=== PATIENT | female | born 1940 | race Caucasian/White ===

== ENCOUNTER → 2017-01-15 | Outpatient (CLI) | payer OTHER, MEDICARE | LOC: BMCIMAGING 14:44 | PROVIDERS: ATTEND Nurse Practitioner Adult Health | DX: N83.202 Unspecified ovarian cyst, left side (principal); D25.9 Leiomyoma of uterus, unspecified ==

== ENCOUNTER → 2017-02-20 | Outpatient (CLI) | payer OTHER, MEDICARE | LOC: BMCIMAGING 09:40 | PROVIDERS: ATTEND Internal Medicine | DX: J40 Bronchitis, not specified as acute or chronic (principal); J98.4 Other disorders of lung; Z90.11 Acquired absence of right breast and nipple ==

== ENCOUNTER → 2017-04-07 | Outpatient (CLI) | payer OTHER, MEDICARE | LOC: BMCIMAGING 09:08 | PROVIDERS: ATTEND Nurse Practitioner Adult Health | DX: Z09 Encounter for follow-up examination after completed treatment for conditions other than malignant neoplasm (principal); Z87.09 Personal history of other diseases of the respiratory system; Z80.3 Family history of malignant neoplasm of breast ==

== ENCOUNTER 2017-04-14 18:42 | Emergency (ER) | payer OTHER, MEDICARE ==
[2017-04-14 18:53] VITALS: RESP 18
[2017-04-14] MEDS ORDERED: methylPREDNISolone SOD SUCC 125 MG/2 ML VIAL ONE (19:02)
[2017-04-14] MEDS ORDERED: NS 1,000 ML IV ONE (19:37)
[2017-04-14] MEDS ORDERED: RANITIDINE 50 MG/2 ML VIAL IVP ONE (19:37)
[2017-04-14] MEDS ORDERED: methylPREDNISolone SOD SUCC 125 MG/2 ML VIAL IVP ONE (19:37)
--- NOTE | 2017-04-14 19:41 | EDPHY ---
H & P Stated Complaint: TONGUE SWELLING Time Seen by Provider: 04/14/17 19:29 HPI/ROS: CHIEF COMPLAINT: Tongue swelling HISTORY OF PRESENT ILLNESS: The patient is a 76-year-old female who comes to the emergency department from the Urgent Care complaining of tongue swelling. She 1st noticed it at around 6:00 p.m. when she was eating dinner. It was primarily on the right side of her tongue. It is now spread to the left side of her tongue. No swelling in her throat or lips. She does not take any Segun inhibitors or blood pressure medication. She does take statins. She has not had any medication changes other that she is currently on a fluticasone spray for recent bronchitis. No fevers. No distress. REVIEW OF SYSTEMS: Constitutional: denies: chills, fever, recent illness, recent injury EENTM: See HPI, denies: blurred vision, double vision, nose congestion Respiratory: denies: cough, shortness of breath Cardiac: denies: chest pain, irregular heart rate, lightheadedness, palpitations Gastrointestinal/Abdominal: denies: abdominal pain, diarrhea, nausea, vomiting, blood streaked stools Genitourinary: denies: dysuria, frequency, hematuria, pain Musculoskeletal: denies: joint pain, muscle pain Skin: denies: lesions, rash, jaundice, bruising Neurological: denies: headache, numbness, paresthesia, tingling, dizziness, weakness Hematologic/Lymphatic: denies: blood clots, easy bleeding, easy bruising Immunologic/allergic: denies: HIV/AIDS, transplant EXAM: GENERAL: Well-appearing, well-nourished and in no acute distress. HEAD: Atraumatic, normocephalic. EYES: Pupils equal round and reactive to light, extraocular movements intact, sclera anicteric, conjunctiva are normal. ENT: TMs normal, nares patent, bilateral tongue swelling. Not protruding from mouth. Handling secretions. No wheezing or stridor. Moist mucous membranes. NECK: Normal range of motion, supple without lymphadenopathy or JVD. LUNGS: Breath sounds clear to auscultation bilaterally and equal. No wheezes rales or rhonchi. HEART: Regular rate and rhythm without murmurs, rubs or gallops. ABDOMEN: Soft, nontender, normoactive bowel sounds. No guarding, no rebound. No masses appreciated. BACK: No CVA tenderness, no spinal tenderness, step-offs or deformities EXTREMITIES: Normal range of motion, no pitting or edema. No clubbing or cyanosis. NEUROLOGICAL: Cranial nerves II through XII grossly intact. Normal speech, normal gait. 5/5 strength, normal movement in all extremities, normal sensation PSYCH: Normal mood, normal affect. SKIN: Warm, dry, normal turgor, no visible rashes or lesions. Source: Patient Exam Limitations: No limitations - Personal History Current Tetanus/Diphtheria Vaccine: Yes Tetanus Vaccine Date: 5yrs ago - Medical/Surgical History Hx Asthma: No Hx Chronic Respiratory Disease: Yes Hx Diabetes: Yes Hx Cardiac Disease: No Hx Renal Disease: No Hx Cirrhosis: No Hx Alcoholism: No Hx HIV/AIDS: No Hx Splenectomy or Spleen Trauma: No Other PMH: BREAST CANCER/MASTECTOMY/PNA - Family History Significant Family History: No pertinent family hx - Social History Smoking Status: Never smoked Alcohol Use: Sober Drug Use: None Constitutional: Initial Vital Signs Temperature (C) 36.8 C 04/14/17 18:50 Heart Rate 90 04/14/17 18:50 Respiratory Rate 18 04/14/17 18:50 Blood Pressure 174/97 H 04/14/17 18:50 O2 Sat (%) 94 04/14/17 18:50 O2 Delivery Mode Room Air Allergies/Adverse Reactions: No Allergies [NKDA] Allergy (Verified 10/04/09 09:16) Home Medications: Medication Instructions Recorded Ascorbic Acid [Vitamin C 500 mg 1,000 mg PO BID 12/23/12 (OTC)] Aspirin [Aspirin 81mg (OTC)] 81 mg PO DAILY 12/23/12 Atorvastatin Calcium [Lipitor 10 10 mg PO DAILY 12/23/12 mg (RX)] Cyanocobalamin [Vitamin B12 1000 1,000 mcg PO DAILY 12/23/12 MCG (OTC)] Glucosam/Chondr/Collagn/Hyalur 2 each PO DAILY 12/23/12 [Glucosamine & Chondroitin Cap] Herbals/Supplements -Info Only 1 each PO AD 12/23/12 Latanoprost 0.005% [Xalatan 0.005% 1 drops EACHEYE HS 12/23/12 (RX)] Levothyroxine [Synthroid 88 mcg 88 mcg PO DAILY 12/23/12 (RX)] Multivitamins [Tab-A-Lo] 1 each PO DAILY 12/23/12 Randolph-3 Fatty Acids [Fish Oil 1000 1,000 mg PO DAILY 12/23/12 mg (OTC)] metFORMIN HCL [Glucophage 500 mg 500 mg PO BIDMEAL 12/23/12 (RX)] EPINEPHRINE [EPIPEN] 0.3 mg IM ONCE #2 syr 04/14/17 predniSONE 60 mg PO DAILY #9 tab 04/14/17 Medical Decision Making ED Course/Re-evaluation: 8:50 p.m. the patient's tongue is improving. She is received the epinephrine 60 minutes ago. We will continue to observe. 9:45 p.m. care transferred to Dr. Adamson. I will prepare paperwork for discharge. Differential Diagnosis: Partial list of the Differential diagnosis considered include but were not limited to; allergic reaction, angioedema, medication reaction and although unlikely based on the history and physical exam, I also considered anaphylaxis, infection, trauma. - Data Points Medications Given: Discontinued Medications Diphenhydramine HCl (Benadryl Injection) 50 mg IVP EDNOW ONE Stop: 04/14/17 19:38 Last Admin: 04/14/17 19:43 Dose: 50 mg Epinephrine HCl (Epinephrine) 0.3 mg IM EDNOW ONE Stop: 04/14/17 19:38 Last Admin: 04/14/17 19:43 Dose: 0.3 mg Sodium Chloride (Ns) 1,000 mls @ 0 mls/hr IV ONCE ONE; Wide Open PRN Reason: Protocol Stop: 04/14/17 19:38 Last Admin: 04/14/17 19:44 Dose: 1,000 mls Methylprednisolone Sodium Succinate (Solu-Medrol) 125 mg IVP EDNOW ONE Stop: 04/14/17 19:38 Last Admin: 04/14/17 19:44 Dose: 125 mg Ranitidine HCl (Zantac) 50 mg IVP EDNOW ONE Stop: 04/14/17 19:38 Last Admin: 04/14/17 19:44 Dose: 50 mg Departure - Departure Disposition: Home, Routine, Self-Care Clinical Impression: Allergic reaction Qualifiers: Encounter type: initial encounter Qualified Code(s): T78.40XA - Allergy, unspecified, initial encounter Condition: Fair Instructions: General Allergic Reaction (ED) Additional Instructions: Take 50 mg of Benadryl every 6 hours as needed. You may wean off of this as tolerated Take 40 mg of Pepcid every evening. You may wean off of this as tolerated. Take the steroid course as prescribed. Referrals: Afua Herbert MD [Primary Care Provider] - As per Instructions Prescriptions: EPINEPHRINE [EPIPEN] 0.3 mg IM ONCE #2 syr predniSONE 60 mg PO DAILY #9 tab
[2017-04-14 22:16] VITALS: BP 138/85; PULSE 77; TEMP 97.9; O2SAT 94
== END 2017-04-14 22:16 | disposition home or self-care (01) ==
DX: T78.40XA Allergy, unspecified, initial encounter (principal); E11.9 Type 2 diabetes mellitus without complications; E86.9 Volume depletion, unspecified; Z79.82 Long term (current) use of aspirin; Z79.84 Long term (current) use of oral hypoglycemic drugs; Z85.3 Personal history of malignant neoplasm of breast
CPT/HCPCS: 96361; 96372; 96374; 96375; 99284; J0171; J1200; J2780

== ENCOUNTER → 2017-05-13 | Outpatient (CLI) | payer OTHER, MEDICARE | LOC: FIMAGING 09:22 | PROVIDERS: ATTEND Internal Medicine | DX: Z12.31 Encounter for screening mammogram for malignant neoplasm of breast (principal); Z85.3 Personal history of malignant neoplasm of breast | CPT/HCPCS: G0202-52 ==

== ENCOUNTER → 2017-11-09 | Outpatient (CLI) | payer OTHER, MEDICARE | LOC: BMCIMAGING 11:36 | PROVIDERS: ATTEND Nurse Practitioner Adult Health | DX: J18.9 Pneumonia, unspecified organism (principal); J42 Unspecified chronic bronchitis; Z90.11 Acquired absence of right breast and nipple ==

== ENCOUNTER → 2017-12-23 | Outpatient (CLI) | payer OTHER, MEDICARE | LOC: BMCIMAGING 08:15 | PROVIDERS: ATTEND Internal Medicine | DX: Z09 Encounter for follow-up examination after completed treatment for conditions other than malignant neoplasm (principal); J98.11 Atelectasis ==

== ENCOUNTER → 2018-05-14 | Outpatient (CLI) | payer OTHER, MEDICARE | LOC: FIMAGING 10:24 | PROVIDERS: ATTEND Internal Medicine | DX: Z12.31 Encounter for screening mammogram for malignant neoplasm of breast (principal); Z85.3 Personal history of malignant neoplasm of breast; Z90.11 Acquired absence of right breast and nipple ==